=== PATIENT | male | born 1955 | race Native Hawaiian/Other Pacific Islander ===

== ENCOUNTER 2022-08-04 21:11 | Emergency (ER) | payer OTHER ==
[~2022-08-04] VITALS: Ht 185.4 cm; Wt 108.9 kg
[2022-08-04 22:27] VITALS: BP 134/88; TEMP 98.9
== END 2022-08-04 22:20 | disposition home or self-care (01) ==
LOC: ED 21:11
PROC: 0HQGXZZ Repair Left Hand Skin, External Approach (ICD-10-PCS; principal; 2022-08-04)
DX: S61.412A Laceration without foreign body of left hand, initial encounter (principal); W45.8XXA Other foreign body or object entering through skin, initial encounter
CPT/HCPCS: 90471; 90715; 99282